=== PATIENT | male | born 1975 | race Caucasian/White ===

== ENCOUNTER 2016-10-27 11:57 | Day surgery (SDC) | END 2016-10-27 21:38 | disposition home or self-care (01) | DX: M76.61 Achilles tendinitis, right leg (principal); S86.011D Strain of right Achilles tendon, subsequent encounter; X58.XXXD Exposure to other specified factors, subsequent encounter; M92.61 Juvenile osteochondrosis of tarsus, right ankle; M77.51 Other enthesopathy of right foot and ankle | CPT/HCPCS: 27650; 28104; 73610; J0690; J1100; J2175; J2250; J2270; J2405; J2795; J3010 ==